=== PATIENT | male | born 1960 | race Caucasian/White ===

== ENCOUNTER 2024-01-12 11:49 | Emergency (ER) | payer OTHER ==
[~2024-01-12] VITALS: Ht 180.3 cm; Wt 87.1 kg
[2024-01-12 11:59] VITALS: BP 167/101; TEMP 98.2; O2SAT 99
[2024-01-12] MEDS ORDERED: IBUP-1955 PO (13:26)
== END 2024-01-12 13:43 | disposition home or self-care (01) ==
LOC: ER 11:49
DX: S83.91XA Sprain of unspecified site of right knee, initial encounter (principal); M25.551 Pain in right hip; M25.571 Pain in right ankle and joints of right foot; M54.50 Low back pain, unspecified; W10.9XXA Fall (on) (from) unspecified stairs and steps, initial encounter; Y93.89 Activity, other specified; Y92.89 Other specified places as the place of occurrence of the external cause; Y99.8 Other external cause status
CPT/HCPCS: 72170-TC; 73502; 73564-TC; 73610-TC